=== PATIENT | male | born 1950 | race Caucasian/White ===

== ENCOUNTER 2017-07-24 08:00 | Day surgery (SDC) | payer MEDICARE, BC ==
--- NOTE | 2017-07-24 14:50 | Operative Note ---
DATE OF SURGERY: 07/24/2017 OPERATION: COLONOSCOPY to the cecum with cold biopsy forceps polypectomy x2 and cold snare polypectomy x2. INDICATION: History of adenomatous polyps, family history of colon cancer. ANESTHESIA: Intravenous sedation was administered by the department of anesthesiology and included Diprivan titrated to effect. PROCEDURE: Following informed consent from this alert individual including a discussion of the risks and benefits of the procedure and an opportunity for the patient to ask questions, the patient was in the left lateral decubitus position. A digital rectal examination was performed. No abnormalities were noted. Following this, the Olympus [id number] video colonoscope was inserted into the rectum without resistance. The rectal mucosa had a normal appearance with normal folds and distensibility. The colonoscope was advanced up through the colon to the level of the cecum without much difficulty. Throughout the bowel the mucosa appeared normal, the folds were normal, and the bowel was fairly well distensible. The cecum was defined by noting the appendiceal orifice and ileocecal valve. Preparation was good. At the cecum, there was an area of angiodysplasia noted. It was nonbleeding and measured probably 1.2 cm in total length. From this point, the colonoscope was then withdrawn. In the transverse colon, there were 2 diminutive 3-4 mm polyps noted each removed with application of cold biopsy forceps. In the descending colon, there were two 5-6 mm polyps noted each removed with cold snare polypectomy. The colonoscope was then withdrawn back to the rectum where retroflexion accomplished following air insufflation revealed somewhat inflamed internal hemorrhoids which were small in size. The endoscope was straightened and removed. The patient tolerated the procedure well and was returned to the recovery area in stable condition. IMPRESSION: 1. Two transverse colon polyps removed with cold biopsy forceps measuring 3-4 mm in size. 2. Two descending colon polyps measuring 5 and 6 mm in size removed with cold snare polypectomy. 3. Cecal angiodysplasia, nonbleeding. 4. Small internal hemorrhoids. RECOMMENDATIONS: Further recommendations will be forthcoming pending results of pathology obtained today. Followup will be with Dr. Paolo Briseno as well. As always, thank you for allowing me to participate in the care of your patient. CC: Dr. Finn CALDERON
[2017-07-24] MEDS ORDERED: PROPOFOL 10 MG/ML VIAL IV ONE (15:55)
[2017-07-24] MEDS ORDERED: LIDOCAINE 2% MDV (20MG/ML) 20ML VIAL IV ONE (15:55)
== END 2017-07-24 10:10 | disposition home or self-care (01) ==
LOC: HOP 08:00
PROVIDERS: ATTEND Internal Medicine Gastroenterology
DX: Z12.11 Encounter for screening for malignant neoplasm of colon (principal); Z86.010 Personal history of colon polyps; D12.3 Benign neoplasm of transverse colon; D12.4 Benign neoplasm of descending colon; K55.20 Angiodysplasia of colon without hemorrhage; K64.8 Other hemorrhoids; I10 Essential (primary) hypertension; E78.00 Pure hypercholesterolemia, unspecified; E11.9 Type 2 diabetes mellitus without complications; Z79.4 Long term (current) use of insulin